=== PATIENT | male | born 1940 | race African-American/Black ===

== ENCOUNTER 2019-01-28 10:15 | Emergency (ER) | payer BC, MEDICARE ==
[~2019-01-28] VITALS: Ht 165.1 cm; Wt 80.0 kg
[~2019-01-28 10:15] MED LIST: AMLO10TA80 PO; BRIM.2 RIGHTEYE; CLON0.1T14 PO; DORZ10DR9 OP; GLIM4TAB2 PO; HYDR25TA PO; P20 PO; PIOG30TA70 PO; SIMV20TA6 PO
[2019-01-28] MEDS: ACETAMINOPHEN 325MG TABLET PO ONE (11:12)
[2019-01-28 12:25] VITALS: BP 146/72
== END 2019-01-28 12:43 | disposition home or self-care (01) ==
LOC: ER 10:15
DX: M25.512 Pain in left shoulder (principal); E11.9 Type 2 diabetes mellitus without complications; I10 Essential (primary) hypertension; Z79.899 Other long term (current) drug therapy; Z88.8 Allergy status to other drugs, medicaments and biological substances
CPT/HCPCS: 73030; 93005; 99283

== ENCOUNTER 2024-06-22 11:02 | Emergency (ER) | payer BC, MEDICARE ==
[~2024-06-22] VITALS: Ht 172.7 cm; Wt 91.0 kg
[~2024-06-22 11:02] MED LIST changes: +CYAN-50 MT; -GLIM4TAB2 PO; +GLIM4TAB36 PO; +SIMV-43 PO; -SIMV20TA6 PO
[2024-06-22 11:04] VITALS: BP 155/76; PULSE 105; RESP 18; TEMP 36.8; O2SAT 98
[2024-06-22 11:37] VITALS: TEMP 98.3
[2024-06-22] MEDS: ACETAMINOPHEN 500MG TABLET PO ONE (11:37)
[2024-06-22] MEDS: CYCLOBENZAPRINE 10MG TABLET PO ONE (11:37)
[2024-06-22] MEDS ORDERED: DICL100G58 TP (12:57)
[2024-06-22] MEDS ORDERED: ACET-2708 MT (12:57)
[2024-06-22] MEDS ORDERED: LIDO700A15 TP (12:57)
== END 2024-06-22 14:33 | disposition home or self-care (01) ==
LOC: ER 11:02
DX: M43.6 Torticollis (principal); E11.9 Type 2 diabetes mellitus without complications; I10 Essential (primary) hypertension; Z79.899 Other long term (current) drug therapy; Z79.84 Long term (current) use of oral hypoglycemic drugs; Z79.52 Long term (current) use of systemic steroids
CPT/HCPCS: 99283